=== PATIENT | male | born 1970 | race Caucasian/White ===

== ENCOUNTER 2022-02-24 12:48 | Emergency (ER) | payer BC, SELFPAY ==
[2022-02-24 13:06] VITALS: BP 149/89; PULSE 77; RESP 18; TEMP 35.9; O2SAT 97; BMI 32.3
--- NOTE | 2022-02-24 14:16 | ED.BACK ---
HPI - Back Pain/Injury General Chief Complaint: Back Injury/Pain Stated Complaint: Pain lower left /back Time Seen by Provider: 02/24/22 13:46 History of Present Illness HPI Narrative: This 51-year-old male comes in with pain in his left buttock radiating down the posterior aspect of his left upper leg. This pain began yesterday. He does not report any particular injury event or strenuous activity. He states that he had similar symptoms about 3 years ago and it was diagnosed as sciatica. He did receive an injection which brought great relief to though symptoms at that time. He does also reports some discomfort in his left upper extremity and attributes this to his work environment. Related Data Previous Rx's Medication Instructions Recorded atorvastatin 80 mg tablet 80 mg PO QPM #30 tabs 01/12/22 cyclobenzaprine 10 mg tablet 10 mg PO TID #15 tabs 02/24/22 methylprednisolone 4 mg tablets in See Rx Instructions PO .COMPLEX 02/24/22 a dose pack (Medrol (Francisco Javier)) #21 ea metoprolol tartrate 50 mg tablet 50 mg PO BID #60 tabs 02/24/22 naproxen 500 mg tablet (Naprosyn) 500 mg PO BID #30 tabs 02/24/22 Allergies Allergy/AdvReac Type Severity Reaction Status Date / Time No Known Drug Allergies Allergy Verified 01/06/22 13:29 Review of Systems Status of ROS: Reports: 10 or more systems reviewed and unremarkable except as noted in History and below Narrative: Constitutional: No fevers, no weight gain or loss. Eyes: No discharge. No vision changes. HENT: No congestion, no sore throat, no ear pain. Cardiovascular: No chest pain, no palpitations. Respiratory: No shortness of breath, no wheezes, no cough. Gastrointestinal: No abdominal pain, no vomiting, no diarrhea. Genitourinary: No dysuria, no hematuria. Musculoskeletal: Normal range of motion. Skin: No rashes, no pruritis. Neurological: No dizziness, weakness, sensory change, speech change. Endo/Heme/Allergies: No bruising or bleeding. No polydipsia. Pysch: no suicidality, no anxiety, no insomnia. All other systems reviewed and are negative. Exam Narrative: Exam Narrative: Constitutional: Well-developed, well-nourished, no acute distress. HEENT: Normocephalic, atraumatic. Neck: Normal range of motion. Nontender. Supple. Heart: Intact distal pulses. Lungs: No chest discomfort. No wheezes, rhonchi, or rales. Abdomen: Nontender. Back: Normal range of motion. No midline tenderness when palpating along the spine. Extremities: Normal range of motion. No injury. Skin: Intact. No rash. Warm. No erythema or pallor. Neurologic: No altered sensation. No weakness. Alert and oriented. Psychiatric: No suicidality. No anxiety or depression. No insomnia. Nursing notes and vitals signs are reviewed. Const: Vital Signs, click to edit/add: Vital Signs - 24 hr 02/24/22 13:06 Temperature 96.7 F L Pulse Rate [Right Pulse Oximeter] 77 Respiratory Rate 18 Blood Pressure [Ri ght Upper Arm] 149/89 H Pulse Oximetry 97 Oxygen Delivery Me thod Room Air Course Vital Signs Vital signs: Initial Vital Signs Temperature 96.7 F L 02/24/22 13:06 Temperature Source Temporal Artery Scan 02/24/22 13:06 Pulse Rate 77 02/24/22 13:06 Respiratory Rate 18 02/24/22 13:06 Blood Pressure 149/89 H 02/24/22 13:06 Blood Pressure Mean 109 02/24/22 13:06 Blood Pressure Position Sitting 02/24/22 13:06 Pulse Oximetry 97 02/24/22 13:06 Oxygen Delivery Method 02/24/22 13:06 Vital Signs Temperature 96.7 F L 02/24/22 13:06 Pulse Rate 77 02/24/22 13:06 Respiratory Rate 18 02/24/22 13:06 Blood Pressure 149/89 H 02/24/22 13:06 Pulse Oximetry 97 02/24/22 13:06 Oxygen Delivery Method 02/24/22 13:06 Temperature 96.7 F L 02/24/22 13:06 Pulse Rate 77 02/24/22 13:06 Respiratory Rate 18 02/24/22 13:06 Blood Pressure 149/89 H 02/24/22 13:06 Pulse Oximetry 97 02/24/22 13:06 Oxygen Delivery Method 02/24/22 13:06 MDM - Back Pain/Injury MDM Narrative Medical decision making narrative: This patient comes in with symptoms typical of sciatica. He does not have any particular injury event that would indicate need for imaging at this time. He has had symptoms like this in the past. He is also requesting refill of some of his medications. In particular he needs refill of metoprolol, Naprosyn, and cyclobenzaprine. I agreed to do this the but indicated that he would typically go to his primary physician for such refills. I did also prescribe a Medrol Dosepak for his current symptoms. Discharge Plan Discharge Clinical Impression: Sciatica Patient Disposition: Home, Self-Care Condition: Stable Additional Instructions: Take medication as needed and indicated. Follow up with MD or return if worsening. Prescriptions: New cyclobenzaprine 10 mg tablet 10 mg PO TID Qty: 15 0RF methylprednisolone [Medrol (Francisco Javier)] 4 mg tablets,dose pack See Rx Instructions .ROUTE .COMPLEX Qty: 21 0RF Rx Instructions: orally per package directions naproxen [Naprosyn] 500 mg tablet 500 mg PO BID Qty: 30 2RF metoprolol tartrate 50 mg tablet 50 mg PO BID Qty: 60 2RF No Action atorvastatin 80 mg tablet 80 mg PO QPM Qty: 30 0RF Follow Up/Referrals: John Kramer MD [Primary Care Provider] - Stand Alone Forms: [facility] Info Instructions
== END 2022-02-24 14:43 | disposition home or self-care (01) ==
PROVIDERS: Emergency Provider Emergency Medicine Emergency Medical Services; PCP Family Medicine
DX: M54.30 Sciatica, unspecified side (principal)
CPT/HCPCS: 99283; 99284

== ENCOUNTER 2022-02-26 12:53 | Emergency (ER) | payer BC, SELFPAY ==
[2022-02-26 12:58] VITALS: BP 119/100; PULSE 87; RESP 14; TEMP 35.9; O2SAT 97; BMI 36.7
[2022-02-26 13:18] VITALS: BP 119/100; PULSE 87; RESP 14; TEMP 35.9
--- NOTE | 2022-02-26 15:53 | ED.BACK ---
HPI - Back Pain/Injury General Date Seen: 02/26/22 Chief Complaint: Extremity Pain/Injury, Lower Stated Complaint: Leg pain Time Seen by Provider: 02/26/22 12:57 Source: patient Mode of arrival: ambulatory Limitations: no limitations History of Present Illness HPI Narrative: Patient is a 51-year-old gentleman was seen 2 days ago for left-sided back pain, with a suspicion that he had sciatica, he was started on a Medrol Dosepak, and other medications including some of his normal medications that he was not taking, he presents here with continued pain, no bowel or bladder symptoms no fevers chills or sweats, no weakness, no numbness, but the pain radiates down his left leg in an L5 distribution. There is no history of falls or injury, he has have a history of previous back issues with an injection done 3 years ago, on the right side, at L4-L5 with the history of a disc herniation. MRI is reviewed. Pertinent past history: prior back pain Onset (ago): day(s) Timing: constant Severity: moderate Similar Symptoms Previously: Yes Quality: burning and stabbing Location: lumbar spine Radiation: left leg below the knee Exacerbating factors: none Relieving factors: none Associated symptoms: denies other symptoms Treatments prior to arrival: cold therapy, NSAIDS and acetaminophen Work related injury: No Related Data Previous Rx's Medication Instructions Recorded atorvastatin 80 mg tablet 80 mg PO QPM #30 tabs 01/12/22 cyclobenzaprine 10 mg tablet 10 mg PO TID #15 tabs 02/24/22 methylprednisolone 4 mg tablets in See Rx Instructions PO .COMPLEX 02/24/22 a dose pack (Medrol (Francisco Javier)) #21 ea metoprolol tartrate 50 mg tablet 50 mg PO BID #60 tabs 02/24/22 naproxen 500 mg tablet (Naprosyn) 500 mg PO BID #30 tabs 02/24/22 gabapentin 300 mg capsule 300 mg PO QHS #30 caps 02/26/22 Allergies Allergy/AdvReac Type Severity Reaction Status Date / Time No Known Drug Allergies Allergy Verified 01/06/22 13:29 Review of Systems Status of ROS: Reports: 6 or more systems reviewed and unremarkable except as noted in History and below PFSH PFSH Social History Smoking Status: Never smoker Do you use any of these nicotine containing products: None How often do you have a drink containing alcohol: never How often do you have six or more drinks on one occasion: Never AUDIT-C Alcohol total score: 0 Non-prescribed substance use: denies use service: No Exam Narrative: Exam Narrative: Patient is seen in room 3 he is in no apparent distress, he is seen with the the nurse who speaks fluent Korean. He is able stand for me, for flexion is 30? backward extension is full, he is little bit a reactive scoliosis convex right notable. No palpable pain over his back on palpation percussion, grossly perianal sensation is normal, his straight leg raise on the left, sitting is can come to approximately 70? when he comes up to 90 he does wince. His EHLs, great toe flexors, ankle dorsiflexors and plantar flexors knee flexors and extensors and hip flexors are graded 5/5 power bilaterally with symmetrical muscle bulk bilaterally, he is grossly normal overall the signature dermatomal areas, with normal pulses, no edema. I did discuss with him the futility of x-rays at this point, I think a reasonable course would be to give him a shot of Toradol, continue on the medications, adding gabapentin at night him follow up with primary care which he has an appointment already, for they can consider an outpatient MRI, as this is on the contralateral side of his previous issue. We went over warning signs and signs and symptoms which she should follow up at once. Const: Vital Signs, click to edit/add: Vital Signs - 24 hr 02/26/22 12:58 02/26/22 13:18 Temperature 96.6 F L 96.6 F L Pulse Rate [Pulse Oximeter] 87 87 Respiratory Rate 14 14 Blood Pressure [Ri ght Upper Arm] 119/100 H 119/100 H Pulse Oximetry 97 Oxygen Delivery Me thod Room Air Documenting provider has reviewed patient's vital signs: yes Course Vital Signs Vital signs: Initial Vital Signs Temperature 96.6 F L 02/26/22 12:58 Temperature Source Temporal Artery Scan 02/26/22 12:58 Pulse Rate 87 02/26/22 12:58 Respiratory Rate 14 02/26/22 12:58 Blood Pressure 119/100 H 02/26/22 12:58 Blood Pressure Mean 106 02/26/22 12:58 Blood Pressure Position Sitting 02/26/22 12:58 Pulse Oximetry 97 02/26/22 12:58 Oxygen Delivery Method 02/26/22 12:58 Vital Signs Temperature 96.6 F L 02/26/22 12:58 Pulse Rate 87 02/26/22 12:58 Respiratory Rate 14 02/26/22 12:58 Blood Pressure 119/100 H 02/26/22 12:58 Pulse Oximetry 97 02/26/22 12:58 Oxygen Delivery Method 02/26/22 12:58 Temperature 96.6 F L 02/26/22 13:18 Pulse Rate 87 02/26/22 13:18 Respiratory Rate 14 02/26/22 13:18 Blood Pressure 119/100 H 02/26/22 13:18 Pulse Oximetry 97 02/26/22 12:58 Oxygen Delivery Method 02/26/22 12:58 MDM - Back Pain/Injury MDM Narrative Medical decision making narrative: Life-threatening differential diagnosis considered include: Cauda equina an epidural abscess, other differential diagnosis considered includes sprain, contusion, nerve root entrapment, radiculopathy, muscle spasm, urolithiasis, lumbar fracture, pyelonephritis, appendicitis, biliary colic, as well as other etiologies. The patient denies saddle anesthesia bowel or bladder incontinence or lower extremity weakness, recent weight loss, or history of malignancy. Medical Records Attestation: I reviewed the patient's medical records. Lab Data Attestation: I reviewed the patient's lab results. Discharge Plan Discharge Clinical Impression: Sciatica Patient Disposition: Home, Self-Care Condition: Stable Instructions: Sciatica (ED) Additional Instructions: Home rest elevation of left leg as much as possible, continue take your methylprednisolone, new medications as directed, gabapentin 300 mg at at bedtime is also some added on. Follow-up with primary care, no worrisome signs symptoms here, Prescriptions: New gabapentin 300 mg capsule 300 mg PO QHS Qty: 30 2RF No Action cyclobenzaprine 10 mg tablet 10 mg PO TID Qty: 15 0RF methylprednisolone [Medrol (Francisco Javier)] 4 mg tablets,dose pack See Rx Instructions .ROUTE .COMPLEX Qty: 21 0RF Rx Instructions: orally per package directions naproxen [Naprosyn] 500 mg tablet 500 mg PO BID Qty: 30 2RF metoprolol tartrate 50 mg tablet 50 mg PO BID Qty: 60 2RF atorvastatin 80 mg tablet 80 mg PO QPM Qty: 30 0RF Follow Up/Referrals: John Kramer MD [Primary Care Provider] - Stand Alone Forms: [facility] Info Instructions
== END 2022-02-26 13:19 | disposition home or self-care (01) ==
LOC: ED 13:18
PROVIDERS: Emergency Provider Family Medicine; PCP Family Medicine
DX: M54.42 Lumbago with sciatica, left side (principal)
CPT/HCPCS: 99283; 99284

== ENCOUNTER 2022-03-02 15:35 | Outpatient (CLI) | payer BC, SELFPAY ==
--- OUTSIDE RECORDS SUMMARY | 2022-03-02 15:45 | XMS_ITS | Clinical Summary ---
:1970 Author Organization [facility] [place] [address] Care Team Providers Name Role Phone [facility]available [phone] Pcp, No Primary Care Provider Unavailable Allergies No known active allergies Medications Medication Sig Dispensed Refills Start Date End Date Status aspirin enteric coated Take 1 tablet by 0 01/16/2011 Active 81 mg tablet mouth once daily with a meal. metoprolol tartrate Take 1 tablet by 60 tablet 3 07/22/2018 Active (LOPRESSOR) 25 mg mouth 2 times tabletIndications: daily. Coronary artery disease involving [place] coronary artery of [place] heart with unstable angina pectoris (HC) acetaminophen Take 1 tablet by 0 07/22/2018 Active (TYLENOL) 325 mg mouth every 4 tabletIndications: hours if needed Coronary artery (For mild pain). disease involving Max acetaminophen [place] coronary artery dose: 4000mg in 24 of [place] heart with hrs. unstable angina pectoris (HC) LORazepam (ATIVAN) 1 Take 1 mg by mouth 0 Active mg tablet every 6 hours if needed. sennosides-docusate, Take 2 tablets by 0 Active 8.6-50 mg, (SENOKOT-S) mouth 2 times 8.6-50 mg tablet daily if needed for Constipation. omeprazole (PRILOSEC) Take 1 capsule by 60 capsule 0 9 Active 20 mg Delayed-Release mouth 2 times capsuleIndications: daily before Gastroesophageal meals. reflux disease, esophagitis presence not specified atorvastatin (LIPITOR) Take 1 tablet by 90 tablet. 2 0 Active 80 mg mouth at bedtime. tabletIndications: Due cardiology Coronary artery appt in January disease involving 2020 [place] coronary artery of [place] heart with unstable angina pectoris (HC) Active Problems Problem Noted Date S/P CABG x 3 07/18/2018 Overview: HERNANDEZ to left anterior descending artery ARNOLDO to OM 1 RSVG to RCA History of ST elevation myocardial infarction (STEMI) 07/15/2018 Unstable angina 07/15/2018 Essential hypertension 07/15/2018 Coronary artery disease involving [place] coronary marisel ry of [place] heart 07/15/2018 with unstable angina pectoris Hyperlipidemia 07/15/2018 Obesity (BMI 30-39.9) 07/15/2018 Abnormal myocardial perfusion study 07/01/2018 Overview: Moderate decreased activity of mid infer ior, inferolateral puentes Acute diverticulitis 12/23/2017 CAD (coronary artery disease) 06/17/2013 Overview: 05/2013: Coronary angiography: 30% stenos is of the left main, 60% stenosis of the proximal LAD. 60% of OM1, RCA with the above lesions, s/p ADONAY placement x 3 as above. Allergic rhinitis, cause unspecified 01/16/2011 Old myocardial infarction 02/13/2010 Overview: IWMI 2007, BMS to RCA; LVEF 55% Other chest pain 02/13/2010 BRITTON (dyspnea on exertion) 02/13/2010 Other and unspecified hyperlipidemia 08/08/2007 Overview: - statin rx for goal LDL < 70; fish oil Acute postoperative respiratory insufficiency Blood loss anemia Hyperglycemia Resolved Problems Problem Noted Date Resolved Date Other abnormal blood chemistry 08/08/2007 1 Overview: - in setting of [place] - declining Acute myocardial infarction, unspecified site, episode of ca re 08/05/2007 03/16/2011 unspecified Overview: - 08/05/07 angiogram: * severe single vessel CAD: s/p aspirat ion thrombectomy and BMS to mRCA * akinetic inferior wall * LV gram with EF 55% - 08/08/07 echo Immunizations Name Administration Dates Next Due Influenza Virus, Unspecified 05/12/2013 Influenza, IIV3 (Age 6-35 mos) 02/14/2010 Influenza, IIV3 (Age >=3 years) 02/23/2014, 05/09/2012, 01/03, 02/14/2010 Influenza, IIV4 02/11/2016 Pneumococcal Poly,23-Valent 05/13/2013 (Pneumovax) Family History Medical History Relation Name Comments Cancer Other No History of Criss ng cancer in 1st degree relatives Relation Name Status Comments Other Social History Tobacco Use Types Packs/Day Years Used Date Former Smoker Cigarettes 0.5 3 Quit: 05/03/18 90 Smokeless Tobacco: Never Used Tobacco Cessation: Counseling Given: Yes Alcohol Use Standard Drinks/Week Comments Yes 3 (1 standard drink = 0.6 oz pure alcoho l) Sex Assigned at Date Recorded Not on file Obstetrics History Last Filed Vital Signs Vital Sign Reading Time Taken Comments Blood Pressure 123/75 08/27/2018 9:00 AM CDT Pulse 77 08/27/2018 9:50 AM CDT Temperature 36.7 ??C (98.1 ??F) 08/27/2018 12:45 AM CDT Respiratory Rate 16 08/27/2018 9:00 AM CDT Oxygen Saturation 96% 08/27/2018 9:00 AM CDT Inhaled Oxygen Concentration - - Weight 82.9 kg (182 lb 11.2 oz) 10/18/2018 1:00 PM CDT Height 165.1 cm (5' 5) 10/18/2018 1:00 PM CDT Body Mass Index 30.4 10/18/2018 1:00 PM CDT Plan of Treatment Health Maintenance Due Date Last Done Comments Tdap 12/09/1979 Hepatitis C screening for age 0812/08/1986 18-79 Tetanus booster 1988 Colonoscopy through age 75 2013 Zoster (shingles) series for age 0812/08/2018 50+ (1 of 2) BMI (ht and wt on same day) for 12/23/2018 12/23/2017, 08/01, age 18+ 10/05/2016, Additional history exists Depression screening for age 12+ 10/22/2019 10/21/2018, , 10/18/2018, Additional history exists COVID-19 vaccine series (3 - 10/15/2020 08/20/2020, 021 Booster for Pfizer series) Influenza for age 50-64 01/01/2022 02/11/2016, 02/23/2014, 05/12/2013, Additional history exists Lipids for age 45-75 07/17/2023 07/16/2018, 05/14/2013, 08/11/2011, Additional history exists Results Not on filefrom Last 3 Months Insurance Payer Benefit Plan / Subscriber ID Effective Dates Phone Addre ss Type Group [employer] OF [id number] 2015-Present [address] [address] [place] [address] Geoffrey Palomino Personal/Famil Self 1970 [id number] ([address] [place] [address] [employer] [facility] 05/03/2000 [phone] ATTN [facility] Health/[address] (Home) [address] [place] [address] Advance Directives Latest Code Status on File Code Status Date Activated Date Inactivated Comments Full Code 08/24/2018 10:31 PM 08/27/2018 6:34 PM Full Code 07/15/2018 9:26 PM 07/22/2018 6:52 PM Code Status Discussion: Discussed Full Code 06/29/2013 4:05 PM 06/30/2013 2:23 PM Full Code 05/12/2013 1:58 PM 05/14/2013 4:15 PM Full Code 02/13/2010 2:16 AM 02/14/2010 4:43 PM Care Teams Director Of Reimbursement Relationship Specialty Start Date End Date Pcp, No PCP - General 09/23/20 . [facility] [place] 07/22/18 [address] [place] [address]
[2022-03-02 17:19] LABS: Albumin* 4.6 g/dL (3.3-5.0); Chloride* 104 mmol/L (96-114)
[2022-03-02 17:20] LABS: Potassium* 4.6 mmol/L (3.6-5.1); Sodium* 142 mmol/L (135-149)
[2022-03-02 17:22] LABS: Alanine Aminotransferase* 45 U/L (4-50); Alkaline Phosphatase* 134 U/L (40-150); Aspartate Amino Transferase* 34 U/L (12-35); Bilirubin Total* 0.5 mg/dL (0.1-1.5); Blood Urea Nitrogen* 26 mg/dL (7-30); Calcium* 10.1 mg/dL (8.4-10.6); Carbon Dioxide* 27 mmol/L (20-32); Cholesterol* 199 mg/dL (90-199); Creatinine* 0.7 mg/dL (0.5-1.5); Estimated Glomerular Filt Rate 110 ml/min; Glucose* 91 mg/dL (60-115); Total Protein* 7.4 g/dL (6.0-8.3); Triglycerides* 195 mg/dL (40-149)
[2022-03-02 17:23] LABS: HDL Cholesterol* 42 mg/dL (>=40); LDL Cholesterol Calculated 118 mg/dL (<100)
== END 2022-03-02 15:36 | disposition home or self-care (01) ==
PROVIDERS: PCP Family Medicine; Visit Provider Family Medicine
DX: Z00.00 Encounter for general adult medical examination without abnormal findings (principal); I25.10 Atherosclerotic heart disease of native coronary artery without angina pectoris; I10 Essential (primary) hypertension; E78.5 Hyperlipidemia, unspecified
CPT/HCPCS: 80053; 80061

== ENCOUNTER 2022-05-14 10:11 | Emergency (ER) | payer BC, SELFPAY ==
[2022-05-14] VITALS (19 sets, daily range): BP systolic 105–122; BP diastolic 64–80; PULSE 44–69; RESP 18; TEMP 36.4; O2SAT 95–98; BMI 32.3
--- NOTE | 2022-05-14 11:27 | ED_ITS ---
HPI - General Adult General Time Seen by Provider: 11:27 Date Seen: 05/14/22 Chief complaint: Dizziness/Vertigo Stated complaint: Dizzy, headache, weakness Time Seen by Provider: 05/14/22 11:19 Source: patient, RN notes reviewed and dental associate Mode of arrival: ambulatory Limitations: no limitations History of Present Illness HPI narrative: Patient is a 51-year-old male seen with the assistance of the dental associate coming in with dizziness which he describes as a spinning sensation. He was at work yesterday and went to stand up, got severely dizzy like he was spinning and had to hang on to something to stabilize himself. With this he noted significant upper back pain. There is no chest pain, no palpitations. His gave him 2 Tylenol which resolved this upper back pain. There was no trauma. He had an episode again today with similar symptoms, went to stand up and became severely dizzy with spinning sensation, felt nauseated, and broke out into a cold sweat. He is still feeling somewhat vertiginous but less so than he was earlier. He feels best lying still. When I have him why in the bed and just move his head he does not really feel worse. If I have him sit up it makes him significantly worse. Denies any other neurologic symptomatology with this. He does not carry a diagnosis of hypertension, no diabetes but has hype rlipidemia and history of coronary artery disease with a prior CABG. I do see hypertension listed as a diagnosis in his chart despite his denial of this condition. Related Data Home Medications Medication Instructions Recorded Confirmed aspirin 81 mg tablet,delayed 81 mg PO QDAY 03/02/22 03/02/22 release Previous Rx's Medication Instructions Recorded cyclobenzaprine 10 mg tablet 10 mg PO TID #15 tabs 02/24/22 naproxen 500 mg tablet (Naprosyn) 500 mg PO BID #30 tabs 02/24/22 atorvastatin 80 mg tablet 80 mg PO QPM #90 tabs 03/02/22 gabapentin 300 mg capsule 300 mg PO TID #90 caps 03/02/22 metoprolol tartrate 50 mg tablet 50 mg PO BID #180 tabs 03/02/22 terbinafine HCl 250 mg tablet 250 mg PO QDAY #90 tabs 03/02/22 meclizine 25 mg tablet 25 mg PO TID PRN #15 tabs 05/14/22 Allergies Allergy/AdvReac Type Severity Reaction Status Date / Time house dust Allergy Mild Sneezing Verified 03/25/22 09:53 Review of Systems Status of ROS: Reports: 10 or more systems reviewed and unremarkable except as noted in History and below [facility] Medical History History of myocardial infarction (2007) History of ST elevation myocardial infarction (STEMI) (07/15/18) Surgical History History of coronary artery bypass surgery (07/2018) History of coronary artery stent placement (2007) Social History Narrative: Medical Problems: Chronic sinusitis 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 Sepulveda 05/18/16 clinic note. Diverticulitis Coronary artery disease Angina pectoris Chronic. See [facility] Heart note 07/15/18 seen at [facility]. History of acute myocardial infarction 2008 STEMI w/ thromby&RCA stent. [address] [facility] Hrt note 07/15/18. Nonadherence to medical treatment Hypertension Allergic rhinitis Unstable angina Generalized anxiety disorder History of ST elevation myocardial infarction (STEMI) Hyperlipidemia Surgical Problems: History of coronary artery stent placement Hx of coronary artery bypass graft Social History Problems: , 2 kids, Liliana, non-smoker, no EtOH Family hx: Smoking Status: Never smoker Do you use any of these nicotine containing products: None How often do you have a drink containing alcohol: never How often do you have six or more drinks on one occasion: Never AUDIT-C Alcohol total score: 0 Non-prescribed substance use: denies use Little interest or pleasure in doing things: not at all Feeling down, depressed, or hopeless: not at all service: No Exam Const: Vital Signs, click to edit/add: Vital Signs - 24 hr 05/14/22 10:31 05/14/22 11:45 05/14/22 11:51 Temperature 97.6 F Pulse Rate 51 L Pulse Rate [Right Pulse Oximeter] 69 Respiratory Rate 18 Blood Pressure Blood Pressure [Ri ght Upper Arm] 122/80 Pulse Oximetry 98 97 95 Oxygen Delivery Me thod Room Air 05/14/22 12:09 05/14/22 12:15 05/14/22 12:30 Temperature Pulse Rate 57 L 48 L 48 L Pulse Rate [Right Pulse Oximeter] Respiratory Rate Blood Pressure Blood Pressure [Ri ght Upper Arm] Pulse Oximetry 98 95 96 Oxygen Delivery Me thod 05/14/22 12:31 05/14/22 12:32 05/14/22 12:45 Temperature Pulse Rate 52 L 52 L 46 L Pulse Rate [Right Pulse Oximeter] Respiratory Rate Blood Pressure 118/76 Blood Pressure [Ri ght Upper Arm] Pulse Oximetry 96 96 97 Oxygen Delivery Me thod 05/14/22 13:00 05/14/22 13:01 05/14/22 13:15 Temperature Pulse Rate 45 L 49 L 44 L Pulse Rate [Right Pulse Oximeter] Respiratory Rate Blood Pressure 114/70 Blood Pressure [Ri ght Upper Arm] Pulse Oximetry 97 97 97 Oxygen Delivery Me thod 05/14/22 13:30 05/14/22 13:31 05/14/22 13:32 Temperature Pulse Rate 48 L 45 L 46 L Pulse Rate [Right Pulse Oximeter] Respiratory Rate Blood Pressure 110/69 Blood Pressure [Ri ght Upper Arm] Pulse Oximetry 97 98 96 Oxygen Delivery Me thod 05/14/22 13:45 05/14/22 14:00 05/14/22 14:01 Temperature Pulse Rate 46 L 47 L 47 L Pulse Rate [Right Pulse Oximeter] Respiratory Rate Blood Pressure 105/64 Blood Pressure [Ri ght Upper Arm] Pulse Oximetry 98 97 96 Oxygen Delivery Me thod 05/14/22 14:15 Temperature Pulse Rate 44 L Pulse Rate [Right Pulse Oximeter] Respiratory Rate Blood Pressure Blood Pressure [Ri ght Upper Arm] Pulse Oximetry 97 Oxygen Delivery Me thod Documenting provider has reviewed patient's vital signs: yes Common normals: no apparent distress, average body habitus, oriented x3, no limitations, healthy appearing, alert and well nourished General appearance: cooperative, comfortable, well kempt and well developed HENMT: Common normals: normocephalic, head/scalp atraumatic, hearing grossly normal bilaterally, external ears normal, EAC's normal, TM's normal bilaterally, external nose normal, nasal mucous membranes and turbinates normal, moist oral mucous membranes, oropharynx normal, dentition normal and gingiva normal Head and scalp: normocephalic and atraumatic Nose: external nose normal and nasal mucous membranes and turbinates normal External ear: external ears normal External auditory canal: EAC's normal Tympanic membrane: TM's normal bilaterally Eye: Common normals: PERRL, EOMs intact bilaterally, conjunctivae normal, no scleral icterus and normal visual ramsey by confrontation Conjunctiva: conjunctiva(e) normal Pupil: PERRL Neck & C-Spine: Common normals: full ROM, no lymphadenopathy, supple, no meningeal signs, no JVD and thyroid normal Thyroid: thyroid normal Chest: Common normals: inspection of chest normal and palpation of chest normal Resp: Common normals: normal respiratory effort, no retractions, no use of accessory muscles and clear to auscultation bilaterally Auscultation: clear to auscultation bilaterally Cardio: Common normals: no JVD, regular rate, regular rhythm, S1 normal heart sound, S2 normal heart sound, no gallops, no clicks and no murmurs Rate: regular rate Rhythm: regular rhythm Heart sounds: S1 normal and S2 normal GI: Common normals: Normal to inspection, nondistended, normoactive bowel sounds present, soft to palpation, non-tender, no hepatosplenomegaly, no masses and no bruits Palpation: soft and no hepatosplenomegaly Extremity: Common normals: normal to inspection, no calf tenderness and no pedal edema Neuro: Common normals: oriented x3, CN's II-XII intact bilaterally, moves all extremities, no focal motor deficits and no sensory deficits noted Sensorium/orientation: alert Meningeal signs: no meningeal signs Coordination/balance: [id number] test normal Speech: speech normal Coordination: [id number] test normal Other: Do not see any significant nystagmus on examination. Has no eye drifting with the cover uncover testing. Do not really appreciate any catch-up saccade. When I have patient sit up, he states it really makes his dizziness or spinning worse. Psych: Appearance: well kempt Course Course Hospital Course: Will consider ischemic disease with central vertigo with this patient. He will also have a D-dimer given the back pain he had the other day with this, reassuring that he did not have this reoccur today. Will do full complement of labs. Try meclizine. He will be on cardiac monitoring and pulse oximetry while here. Reevaluation(s) Reevaluation #1: The of the dental associate, have reviewed no evidence of any stroke. There is no electrolyte abnormality. This would appear to be peripheral vertigo. We will send a referral for physical therapy for him, meclizine. His is worried as he does a lot of bending at work and activity. Will write for 2 days off of work. Time: 14:39 Vital Signs Vital signs: Initial Vital Signs Temperature 97.6 F 05/14/22 10:31 Temperature Source Temporal Artery Scan 05/14/22 10:31 Pulse Rate 69 05/14/22 10:31 Respiratory Rate 18 05/14/22 10:31 Blood Pressure 122/80 05/14/22 10:31 Blood Pressure Mean 94 05/14/22 10:31 Blood Pressure Position Sitting 05/14/22 10:31 Pulse Oximetry 98 05/14/22 10:31 Oxygen Delivery Method 05/14/22 10:31 Vital Signs Temperature 97.6 F 05/14/22 10:31 Pulse Rate 69 05/14/22 10:31 Respiratory Rate 18 05/14/22 10:31 Blood Pressure 122/80 05/14/22 10:31 Pulse Oximetry 98 05/14/22 10:31 Oxygen Delivery Method 05/14/22 10:31 Temperature 97.6 F 05/14/22 10:31 Pulse Rate 44 L 05/14/22 14:15 Respiratory Rate 18 05/14/22 10:31 Blood Pressure 105/64 05/14/22 14:01 Pulse Oximetry 97 05/14/22 14:15 Oxygen Delivery Method 05/14/22 10:31 Medical Decision Making Lab Data Lab results reviewed: Yes I reviewed the patient's lab results Labs: Lab Results 05/14/22 05/14/22 05/14/22 Range/Units 11:46 11:48 11:48 WBC 6.24 (4.50-11.00) K/uL RBC 4.87 (4.30-5.90) m/uL Hgb 15.0 (13.5-17.5) gm/dL Hct 43.8 (37.0-53.0) % MCV 90 (80-100) fL MCH 31 (26-34) pg MCHC 34 (32-36) gm/dL RDW Coeff of [place] 12.6 (11.5-15.5) % Plt Count 272 (140-440) K/uL Neut % (Auto) 60.5 (42.0-72.0) % Lymph % (Auto) 30.1 (20-44) % [place] % (Auto) 5.9 (0.0-11.0) % Eos % (Auto) 2.7 (0.0-7.0) % Baso % (Auto) 0.5 (0.0-3.0) % Neut # (Auto) 3.77 (1.7-7.0) K/uL Lymph # (Auto) 1.88 (0.90-2.90) K/uL [place] # (Auto) 0.40 (0.00-0.90) K/UL Eos # (Auto) 0.17 (0.00-0.50) K/uL Baso # (Auto) 0.03 (0.00-0.30) K/uL D-Dimer Quant (PE/DVT) 0.16 (0.00-0.50) ug/ml Sodium (135-149) mmol/L Potassium (3.6-5.1) mmol/L Chloride (96-114) mmol/L Carbon Dioxide (20-32) mmol/L BUN (7-30) mg/dL Creatinine (0.5-1.5) mg/dL Estimated Creat Clear Estimated GFR ml/min Glucose (60-115) mg/dL Lactate (0.5-1.9) mmol/L Calcium (8.4-10.6) mg/dL Magnesium (1.5-2.6) mg/dL Total Bilirubin (0.1-1.5) mg/dL AST (12-35) U/L ALT (4-50) U/L Alkaline Phosphatase (40-150) U/L C-Reactive Protein (0.5-1.0) mg/dL NT-Pro-B Natriuret Pep pg/mL Total Protein (6.0-8.3) g/dL Albumin (3.3-5.0) g/dL TSH (0.270-4.200) uIU/mL SARS-CoV-2 (PCR) (Negative) POC Troponin I 0.00 L (0.01-0.04) ng/ml 05/14/22 05/14/22 05/14/22 Range/Units 11:48 11:48 11:48 WBC (4.50-11.00) K/uL RBC (4.30-5.90) m/uL Hgb (13.5-17.5) gm/dL Hct (37.0-53.0) % MCV (80-100) fL MCH (26-34) pg MCHC (32-36) gm/dL RDW Coeff of [place] (11.5-15.5) % Plt Count (140-440) K/uL Neut % (Auto) (42.0-72.0) % Lymph % (Auto) (20-44) % [place] % (Auto) (0.0-11.0) % Eos % (Auto) (0.0-7.0) % Baso % (Auto) (0.0-3.0) % Neut # (Auto) (1.7-7.0) K/uL Lymph # (Auto) (0.90-2.90) K/uL [place] # (Auto) (0.00-0.90) K/UL Eos # (Auto) (0.00-0.50) K/uL Baso # (Auto) (0.00-0.30) K/uL D-Dimer Quant (PE/DVT) (0.00-0.50) ug/ml Sodium 141 (135-149) mmol/L Potassium 3.8 (3.6-5.1) mmol/L Chloride 106 (96-114) mmol/L Carbon Dioxide 27 (20-32) mmol/L BUN 25 (7-30) mg/dL Creatinine 0.7 (0.5-1.5) mg/dL Estimated Creat Clear 106.16 Estimated GFR 110 ml/min Glucose 128 H (60-115) mg/dL Lactate 0.8 (0.5-1.9) mmol/L Calcium 8.8 (8.4-10.6) mg/dL Magnesium 2.3 (1.5-2.6) mg/dL Total Bilirubin 0.9 (0.1-1.5) mg/dL AST 45 H (12-35) U/L ALT 58 H (4-50) U/L Alkaline Phosphatase 91 (40-150) U/L C-Reactive Protein < 0.5 L (0.5-1.0) mg/dL NT-Pro-B Natriuret Pep 382 pg/mL Total Protein 7.0 (6.0-8.3) g/dL Albumin 4.4 (3.3-5.0) g/dL TSH 1.390 (0.270-4.200) uIU/mL SARS-CoV-2 (PCR) (Negative) POC Troponin I (0.01-0.04) ng/ml 05/14/22 Range/Units 11:48 WBC (4.50-11.00) K/uL RBC (4.30-5.90) m/uL Hgb (13.5-17.5) gm/dL Hct (37.0-53.0) % MCV (80-100) fL MCH (26-34) pg MCHC (32-36) gm/dL RDW Coeff of [place] (11.5-15.5) % Plt Count (140-440) K/uL Neut % (Auto) (42.0-72.0) % Lymph % (Auto) (20-44) % [place] % (Auto) (0.0-11.0) % Eos % (Auto) (0.0-7.0) % Baso % (Auto) (0.0-3.0) % Neut # (Auto) (1.7-7.0) K/uL Lymph # (Auto) (0.90-2.90) K/uL [place] # (Auto) (0.00-0.90) K/UL Eos # (Auto) (0.00-0.50) K/uL Baso # (Auto) (0.00-0.30) K/uL D-Dimer Quant (PE/DVT) (0.00-0.50) ug/ml Sodium (135-149) mmol/L Potassium (3.6-5.1) mmol/L Chloride (96-114) mmol/L Carbon Dioxide (20-32) mmol/L BUN (7-30) mg/dL Creatinine (0.5-1.5) mg/dL Estimated Creat Clear Estimated GFR ml/min Glucose (60-115) mg/dL Lactate (0.5-1.9) mmol/L Calcium (8.4-10.6) mg/dL Magnesium (1.5-2.6) mg/dL Total Bilirubin (0.1-1.5) mg/dL AST (12-35) U/L ALT (4-50) U/L Alkaline Phosphatase (40-150) U/L C-Reactive Protein (0.5-1.0) mg/dL NT-Pro-B Natriuret Pep pg/mL Total Protein (6.0-8.3) g/dL Albumin (3.3-5.0) g/dL TSH (0.270-4.200) uIU/mL SARS-CoV-2 (PCR) Negative SARS-CoV-2 (Negative) POC Troponin I (0.01-0.04) ng/ml Imaging Data CT scan - head: Attestation: I have reviewed the pertinent imaging results. My impression: Radiology service did call at 12:31 p.m., did state that there were chronic changes but nothing acute. Radiologist's impression: Patient: ALICIA SQUIRES Facility:?[facility] Patient ID:?[id number] Site Patient ID:?[id number]. Site :?[id number] Study:?CT Head W/O STROKE PROTOCOL-05/14/2022 12:18:21 PM Ordering Physician:Dragan King Final Report: Indication: Dizziness Technique: Volumetric multidetector CT images of the head were obtained without the administration of low osmolar intravenous contrast. Comparison: None available Findings: There is no intra-axial or extra-axial fluid collection. There is no mass effect or midline shift. The ventricles and sulci are normal in size and position for age. There is demonstration of a coarse calcification centered within the left basal ganglia. There is no evidence of additional focal abnormality. There is trace chronic small vessel disease change within the subcortical white matter. Otherwise, the brain parenchyma is preserved in attenuation and ro-white differentiation. The orbits and their contents are grossly within normal limits. The bony calvarium is grossly intact. There is minimal mucosal thickening within the paranasal sinuses. The mastoid air cells are well aerated. Impression: Demonstration of coarse calcifications centered in the left basal ganglia consistent with likely a benign vascular calcification and/or sequela of remote inflammatory change. Otherwise, minimal chronic small vessel disease changes without acute intracranial abnormality. A report receipt was sent to Christine Cade at 12:31 p.m. May 14, 2022 Please note that all CT scans at this facility use dose modulation, iterative reconstruction, and/or weight-based dosing when appropriate to reduce radiation dose to as low as reasonably achievable. Dictated by Luigi Parish MD @ 05/14/2022 12:33:34 PM (Electronic Signature) CT- Other: Attestation: I have reviewed the pertinent imaging results. Radiologist's impression: Patient: ALICIA SQUIRES Facility:?[facility] Patient ID:?[id number] Site Patient ID:?[id number]. Site :?[id number] Study:?CT Neck Angio W/IV ONLY-05/14/2022 12:18:50 PM Ordering Physician:?Rayo King Final Report: DATE: 05/14/2022. CLINICAL HISTORY: Dizziness. TECHNIQUE: Standard helical CT image acquisition through the head and neck was performed after intravenous contrast bolus enhancement. Multiplanar reconstructed images were performed and interpreted. COMPARISON: None available. FINDINGS: The origins of the great vessels from the aortic arch are patent. The origins of the right and left vertebral arteries are patent. The common carotid arteries are patent. No significant luminal stenoses of the proximal internal carotid arteries by NASCET criteria. The more distal cervical segments of the internal carotid arteries are patent. The cervical segments of the vertebral arteries are patent. No intracranial proximal large vessel occlusion or flow-limiting luminal stenosis. No evidence of cerebral aneurysm or findings to suggest an arteriovenous shunting lesion. IMPRESSION: 1. No intracranial proximal large vessel occlusion or flow-limiting luminal stenosis. 2. Patent cervical arterial vasculature without hemodynamically significant luminal stenosis. Please note that all CT scans at this facility use dose modulation, iterative reconstruction, and/or weight-based dosing when appropriate to reduce radiation dose to as low as reasonably achievable. Dictated by Shar Pinto MD @ 05/14/2022 1:18:29 PM (Electronic Signature) ECG Data Attestation: I personally reviewed and interpreted this ECG as follows: (Sinus bradycardia, 53 beats per minute. Q-waves in lead 3 and AVF with flipped T-w aves, no ST segment changes. QT corrected 390 milliseconds.) Critical Care Time Critical Care Time Critical Care Time: No Discharge Plan Discharge Clinical Impression: Episodic peripheral vertigo Condition: Stable Instructions: Vertigo (ED) Additional Instructions: Can use the meclizine scheduled for the next couple of days, then can use it as needed. Do recommend scheduling a physical therapy appointment for this, referral provided. If you are having ongoing problems or issues, do need you to schedule a follow-up with your primary care provider in clinic. Activity Level: Activity as Tolerated Prescriptions: New meclizine 25 mg tablet 25 mg PO TID PRNQty: 15 0RF No Action aspirin 81 mg tablet,delayed release (DR/EC) 81 mg PO QDAY atorvastatin 80 mg tablet 80 mg PO QPM Qty: 90 3RF metoprolol tartrate 50 mg tablet 50 mg PO BID Qty: 180 3RF gabapentin 300 mg capsule 300 mg PO TID Qty: 90 0RF terbinafine HCl 250 mg tablet 250 mg PO QDAY Qty: 90 0RF cyclobenzaprine 10 mg tablet 10 mg PO TID Qty: 15 0RF naproxen [Naprosyn] 500 mg tablet 500 mg PO BID Qty: 30 2RF Follow Up/Referrals: John Kramer MD [Primary Care Provider] - Stand Alone Forms: [employer] Info Instructions
--- NOTE | 2022-05-14 11:45 | CRLHL7_ITS ---
For Patients: As a result of the Century Cures Act, medical imaging exams and procedure reports are released immediately into your electronic medical record. You may view this report before your referring provider. If you have questions, please contact your health care provider. Indication: Dizziness Technique: Volumetric multidetector CT images of the head were obtained without the administration of low osmolar intravenous contrast. Comparison: None available Findings: There is no intra-axial or extra-axial fluid collection. There is no mass effect or midline shift. The ventricles and sulci are normal in size and position for age. There is demonstration of a coarse calcification centered within the left basal ganglia. There is no evidence of additional focal abnormality. There is trace chronic small vessel disease change within the subcortical white matter. Otherwise, the brain parenchyma is preserved in attenuation and ro-white differentiation. The orbits and their contents are grossly within normal limits. The bony calvarium is grossly intact. There is minimal mucosal thickening within the paranasal sinuses. The mastoid air cells are well aerated. Impression: Demonstration of coarse calcifications centered in the left basal ganglia consistent with likely a benign vascular calcification and/or sequela of remote inflammatory change. Otherwise, minimal chronic small vessel disease changes without acute intracranial abnormality. A report receipt was sent to Christine Cade at 12:31 p.m. May 14, 2022 Please note that all CT scans at this facility use dose modulation, iterative reconstruction, and/or weight-based dosing when appropriate to reduce radiation dose to as low as reasonably achievable. Dictated by Luigi Parish MD @ 05/14/2022 12:33:34 PM (Electronically Signed)
--- NOTE | 2022-05-14 11:45 | CRLHL7_ITS ---
For Patients: As a result of the Century Cures Act, medical imaging exams and procedure reports are released immediately into your electronic medical record. You may view this report before your referring provider. If you have questions, please contact your health care provider. DATE: 05/14/2022. CLINICAL HISTORY: Dizziness. TECHNIQUE: Standard helical CT image acquisition through the head and neck was performed after intravenous contrast bolus enhancement. Multiplanar reconstructed images were performed and interpreted. COMPARISON: None available. FINDINGS: The origins of the great vessels from the aortic arch are patent. The origins of the right and left vertebral arteries are patent. The common carotid arteries are patent. No significant luminal stenoses of the proximal internal carotid arteries by NASCET criteria. The more distal cervical segments of the internal carotid arteries are patent. The cervical segments of the vertebral arteries are patent. No intracranial proximal large vessel occlusion or flow-limiting luminal stenosis. No evidence of cerebral aneurysm or findings to suggest an arteriovenous shunting lesion. IMPRESSION: 1. No intracranial proximal large vessel occlusion or flow-limiting luminal stenosis. 2. Patent cervical arterial vasculature without hemodynamically significant luminal stenosis. Please note that all CT scans at this facility use dose modulation, iterative reconstruction, and/or weight-based dosing when appropriate to reduce radiation dose to as low as reasonably achievable. Dictated by Shar Pinto MD @ 05/14/2022 1:16:00 PM (Electronically Signed)
[2022-05-14 12:00] LABS: Lactate* 0.8 mmol/L (0.5-1.9)
[2022-05-14 12:03] LABS: Basophils Absolute Auto 0.03 K/uL (0.00-0.30); Basophils Percent Auto 0.5 % (0.0-3.0); Eosinophils Absolute Auto 0.17 K/uL (0.00-0.50); Eosinophils Percent Auto 2.7 % (0.0-7.0); Hematocrit 43.8 % (37.0-53.0); Immature Granulocytes Abs Auto 0.02 K/uL (0.00-0.30); Immature Granulocytes Pct Auto 0.3 %; Lymphocytes Absolute Auto 1.88 K/uL (0.90-2.90); Lymphocytes Percent Auto 30.1 % (20-44); Mean Corpuscular HGB Conc 34 gm/dL (32-36); Mean Corpuscular Hemoglobin 31 pg (26-34); Mean Corpuscular Volume 90 fL (80-100); Monocytes Percent Auto 5.9 % (0.0-11.0); Neutrophils Absolute Auto 3.77 K/uL (1.7-7.0); Neutrophils Percent Auto 60.5 % (42.0-72.0); Platelet Count* 272 K/uL (140-440); RDW Coefficient of Variation % 12.6 % (11.5-15.5); Red Blood Count 4.87 m/uL (4.30-5.90); White Blood Count* 6.24 K/uL (4.50-11.00)
[2022-05-14 12:05] LABS: Slide Review Reflex No
[2022-05-14] MEDS: MECLIZINE HCL 25 MG TABLET PO (12:20)
[2022-05-14 12:23] LABS: Albumin* 4.4 g/dL (3.3-5.0); Chloride* 106 mmol/L (96-114); Sodium* 141 mmol/L (135-149)
[2022-05-14 12:24] LABS: Potassium* 3.8 mmol/L (3.6-5.1)
[2022-05-14 12:26] LABS: Bilirubin Total* 0.9 mg/dL (0.1-1.5); Creatinine* 0.7 mg/dL (0.5-1.5); Est. Creatinine Clearance* 106.16; Estimated Glomerular Filt Rate 110 ml/min
[2022-05-14 12:27] LABS: Alanine Aminotransferase* 58 U/L (4-50); Alkaline Phosphatase* 91 U/L (40-150); Aspartate Amino Transferase* 45 U/L (12-35); Blood Urea Nitrogen* 25 mg/dL (7-30); Calcium* 8.8 mg/dL (8.4-10.6); Carbon Dioxide* 27 mmol/L (20-32); Glucose* 128 mg/dL (60-115); Magnesium* 2.3 mg/dL (1.5-2.6)
[2022-05-14 12:39] LABS: SARS PCR* Negative SARS-CoV-2 (Negative)
[2022-05-14 12:42] LABS: C Reactive Protein* < 0.5 mg/dL (0.5-1.0); NT Pro B Type NatriureticPept* 382 pg/mL
[2022-05-14 12:55] LABS: D Dimer Quantitative* 0.16 ug/ml (0.00-0.50)
== END 2022-05-14 14:59 | disposition home or self-care (01) ==
PROVIDERS: Emergency Provider Family Medicine; PCP Family Medicine
DX: R42 Dizziness and giddiness (principal)
CPT/HCPCS: 36415; 70450; 70496; 70498; 80053; 83605; 83735; 83880; 84443; 84484; 85025; 85379; 86140; 87635; 93005; 94761; 99284; 99285; T1013; A9270; Q9967

== ENCOUNTER 2022-05-28 12:45 | Outpatient (RCR) | payer BC, SELFPAY | END 2022-11-19 23:59 | disposition home or self-care (01) | PROVIDERS: PCP Family Medicine; Visit Provider Family Medicine | DX: R42 Dizziness and giddiness (principal); Z51.89 Encounter for other specified aftercare | CPT/HCPCS: 95992; 97162; T1013 ==

== ENCOUNTER 2023-06-29 07:25 | Outpatient (CLI) | payer BC, SELFPAY | END 2023-06-29 07:26 | disposition home or self-care (01) | LOC: NFLDREF 07-14 12:16 | PROVIDERS: PCP Family Medicine; Referring Provider Family Medicine; Visit Provider Family Medicine | DX: I25.10 Atherosclerotic heart disease of native coronary artery without angina pectoris (principal); I10 Essential (primary) hypertension; Z80.42 Family history of malignant neoplasm of prostate; Z12.5 Encounter for screening for malignant neoplasm of prostate | CPT/HCPCS: 80053; 80061; G0103 ==

== ENCOUNTER 2024-09-28 07:25 | Outpatient (CLI) | payer BC, SELFPAY | END 2024-09-28 07:26 | disposition home or self-care (01) | LOC: NFLDREF 10-03 07:59 | PROVIDERS: PCP Family Medicine; Referring Provider Family Medicine; Visit Provider Family Medicine | DX: I25.10 Atherosclerotic heart disease of native coronary artery without angina pectoris (principal); I10 Essential (primary) hypertension; Z12.5 Encounter for screening for malignant neoplasm of prostate | CPT/HCPCS: 80053; 80061; G0103 ==

== ENCOUNTER 2025-04-13 07:35 | Outpatient (CLI) | payer BC, SELFPAY | END 2025-04-13 07:36 | disposition home or self-care (01) | LOC: NFLDREF 04-18 12:52 | PROVIDERS: PCP Family Medicine; Referring Provider Family Medicine; Visit Provider Family Medicine | DX: E78.5 Hyperlipidemia, unspecified (principal); I25.10 Atherosclerotic heart disease of native coronary artery without angina pectoris | CPT/HCPCS: 80061; 84450; 84460 ==